=== PATIENT | male | born 1965 | race Caucasian/White ===

== ENCOUNTER → 2017-05-18 | Day surgery (SDC) | payer OTHER ==
[~2017-05-18] MED LIST: DEXAMETHASONE SOD PHOS INJ 4 MG/ML VIAL ONE; FENTANYL CITRATE/PF 100MCG/2 ML INJ ONE; FLOMAX0.4 MG PO; GENTAMICIN 120MG/NS 100ML 100 ML ONE; HYDROMORPHONE 2MG/ML INJ ONE; IOPAMIDOL 610MG/1ML 300 MG/ML VIAL IV ONE; LEVAQUIN500 MG PO; LIDOCAINE HCL 2% LOCAL INJ 5 ML SDV VIAL INJ ONE; MIDAZOLAM HCL 2 MG/2 ML VIAL ONE; MORPHINE SULFATE INJ 10 MG/ML ONE; NORCO 10-325 T1 EACH PO; ONDANSETRON HCL INJ 2 MG/ML VIAL ONE; PANTOPRAZOLE SO40 MG PO; PROPOFOL IV EMULSION 10 MG/ML 20 ML VIAL ONE; SEVOFLURANE INHAL SOLN 250 ML PEN BTL ONE; ULORIC40 MG PO
--- NOTE | 2017-05-18 15:42 | Operative Report ---
DATE OF PROCEDURE: May 18, 2017 PREOPERATIVE DIAGNOSES 1. Chronic prostatitis. 2. Recurrent prostatitis. 3. Prostatic obstruction. 4. Back pain. 5. Possible neurogenic bladder. POSTOPERATIVE DIAGNOSES 1. Chronic prostatitis. 2. Recurrent prostatitis. 3. Prostatic obstruction. 4. Back pain. 5. Possible neurogenic bladder. OPERATIONS 1. Cystourethroscopy. 2. Bilateral retrograde pyelogram. SITE SAFETY MANAGER: Dr. Conteh. ANESTHETIC: General. INDICATIONS: Mr. Maza is a 52-year-old male who presented with a chief complaint of lower urinary tract obstructive symptoms, lower back pain, and congested prostate with dysuria and suprapubic pain and perineal pain. This patient is very well known to me and has been under my care for 10 years and then, he disappeared for about 6 to 7 years and presented at this time with dysuria, frequency, lower urinary tract obstructive symptoms, and back pain. CT scan was unremarkable. Prostatic exam showed the prostate to be very tender and about 50 g smooth, firm, and benign. His PSA was normal. This patient was started on Levaquin 750 mg once a day and Flomax. He is already on narcotics for his back pain. PROCEDURE: This patient was placed on the table in the lithotomy position and was prepped and draped in a sterile manner after satisfactory anesthesia. A #23-[place] cystoscope was used and cystourethroscopy was performed and it was noted that the urethra was normal. The prostatic urethra was very congested. The floor was very congested with varicose veins and the prostate was soft and bleeding to touch and occlusive. The prostatic urethra; however, was about 3 to 3.5 cm long, bilobar, and occlusive. Cystoscopy was then performed using both right-angle and the foroblique lens and it was noted that the bladder mucosa was normal with no evidence of gross tumor pathology or any papillary lesions. Both urethral orifices were seen and were within normal position, configuration, and efflux. The bladder wall was mildly trabeculated. Right retrograde pyelogram was then performed using a #8 bulb-tip ureteral catheter inserted at the right ureteral orifice and 5 mL of contrast material was injected. The retrograde performed was normal. Left retrograde pyelogram was performed similarly and was normal. The bladder was drained, cystoscope removed, and the patient taken to the recovery room in satisfactory condition. Plan for this patient is to continue on the Levaquin 750 mg once a day, Flomax 1 tablet daily. He is to return to the office in 6 weeks. Job#: [id number] VAS
== END | disposition home or self-care (01) ==
LOC: OR 09:59
PROVIDERS: ATTEND Specialist
DX: N41.1 Chronic prostatitis (principal); N40.0 Benign prostatic hyperplasia without lower urinary tract symptoms; N40.1 Benign prostatic hyperplasia with lower urinary tract symptoms; N13.8 Other obstructive and reflux uropathy; R35.0 Frequency of micturition; N32.89 Other specified disorders of bladder; M54.5 Low back pain; Z01.810 Encounter for preprocedural cardiovascular examination; Z79.899 Other long term (current) drug therapy
CPT/HCPCS: 52005; 74420; C1758; J1100; J1170; J1580; J2001; J2250; J2270; J2405; Q9967